=== PATIENT | female | born 1945 | race Caucasian/White ===

== ENCOUNTER 2019-05-02 09:22 | Inpatient (IN) ==
[2019-05-02] MEDS ORDERED: ONDANSETRON 4 MG/2 ML VIAL IV STA (09:43)
[2019-05-02] MEDS ORDERED: LEVOFLOXACIN INJ 750 MG in PREMIX 1 EACH IV STA (09:43)
[2019-05-02] MEDS ORDERED: methylPREDNISolone SOD SUC 125 MG/2 ML VIAL IV STA (09:43)
[2019-05-02 09:56] LABS: Basophils # 0.1 10*3/uL (0.0-0.2); Basophils % 1.1 % (0.0-0.8); Eosinophils # 0.7 10*3/uL (0.0-0.87); Eosinophils % 10.3 % (0.00-10.9); Hematocrit 39.9 VOL% (35.7-47.0); Hemoglobin 12.7 GM/DL (12.0-16.0); Immature Granulocytes % 1.4 %; Immature Granulocytes Absolute 0.09 #; Lymphocytes # 1.9 10*3/uL (1.4-4.0); Lymphocytes % 29.1 % (21.3-54.2); Mean Corpuscular HGB Conc 31.8 GM/DL (32-36); Mean Corpuscular Volume 101.3 FL (87-102); Mean Platelet Volume 12.3 FL (9.6-12.0); Monocytes % 11.4 % (1.7-12.7); Neutrophils % 46.7 % (38.7-73.9); Platelet Count 154 T/CUMM (130-400); Red Blood Count 3.94 MC/CUMM (3.8-5.5); Red Cell Distribution Width 12.2 % (9.3-17.3); White Blood Count 6.6 T/CUMM (4-12)
[2019-05-02] MEDS ORDERED: ALBUTEROL 2.5 MG/3 ML NEB RESP TX SCH (10:00)
[2019-05-02 10:05] LABS: PT Patient Result 10.7 SECS (9.6-12.2)
[2019-05-02 10:11] LABS: Hypochromasia Slight; Platelet Estimate Adequate
[2019-05-02 10:20] LABS: Alanine Aminotransferase 40 U/L (13-56); Albumin 3.5 G/DL (3.4-5.0); Alkaline Phosphatase 55 U/L (45-117); Aspartate Amino Transferase 25 U/L (0-37); Blood Urea Nitrogen 22 MG/DL (7-18); Calcium 9.2 MG/DL (8.5-10.1); Estimated Glom Filtration Rate 59 ML/MIN; Glucose 121 MG/DL (74-106); Osmolality,Calculated 282.4 MOS/KG (273-304); Total Protein 6.5 G/DL (6.4-8.3); Troponin I < 0.015 NG/ML (0.00-0.045)
[2019-05-02 11:06] LABS: Apearance,Urine CLEAR (Clear); Bacteria,Urine Many /HPF (Few); Bilirubin,Urine Negative (Negative); Blood, Urine Negative (Negative); Glucose,Urine (UA) Negative (Negative); Ketones,Urine Negative (Negative); Nitrite,Urine Positive (Negative); Protein,Urine Negative; Urine Color Yellow (Yellow); Urine Specific Gravity 1.006 (1.001-1.035); Urine Urobilinogen < 2.0 EU/DL (0.2-1.0); WBC,Urine 2 /HPF (0-6)
[2019-05-02] MEDS ORDERED: FUROSEMIDE 40 MG/4 ML VIAL IV STA (11:41)
[2019-05-02] MEDS ORDERED: LACTULOSE 20 GM/30 ML UDCUP PO PRN (13:00)
[2019-05-02] MEDS ORDERED: guaiFENesin/DM ER 600-30 MG TABLET PO PRN (13:00)
[2019-05-02] MEDS ORDERED: SODIUM CHLORIDE 0.9% 1,000 ML IV SCH (13:00)
[2019-05-02] MEDS ORDERED: ONDANSETRON 4 MG/2 ML VIAL IV PRN (13:00)
[2019-05-02] MEDS ORDERED: ACETAMINOPHEN 325 MG TABLET PO PRN (13:00)
[2019-05-02 13:35] LABS: Risk Ratio 5.97; Thyroid Stimulating Hormone 4.12 uIU/ml (0.358-3.74)
[2019-05-02] MEDS: LEVOFLOXACIN INJ 750 MG in PREMIX 1 EACH IV SCH (13:38)
[2019-05-02] MEDS ORDERED: ALBUTEROL 2.5 MG/3 ML NEB RESP TX PRN (14:19)
[2019-05-02] MEDS ORDERED: NITROGLYCERIN SL 0.4 MG TABLET SL PRN (15:46)
[2019-05-02] MEDS: methylPREDNISolone SOD SUC 40 MG/1 ML VIAL IV SCH ×2 (16:16→22:07)
[2019-05-02] MEDS: FUROSEMIDE 20 MG/2 ML VIAL IV SCH (16:16)
[2019-05-02] MEDS: ASPIRIN EC 81 MG TABLET PO SCH (16:18)
[2019-05-02] MEDS: GABAPENTIN 300 MG CAPSULE PO SCH ×2 (17:21→20:45)
[2019-05-02] MEDS: ALBUTEROL/IPRATROPIUM 3 ML NEB RESP TX SCH (20:10)
[2019-05-02] MEDS: CALCIUM (CARBONATE)/VITAMIN D 600 MG-400 UNIT TABLET PO SCH (20:45)
[2019-05-02] MEDS: ACETYLCYSTEINE 600 MG CAPSULE PO SCH (20:46)
[2019-05-02] MEDS: APIXABAN 2.5 MG TABLET PO SCH (20:47)
[2019-05-02] MEDS: sulfaSALAzine 500 MG TABLET PO SCH (20:49)
[2019-05-02] MEDS ORDERED: SIMVASTATIN 40 MG TABLET PO SCH (21:00)
[2019-05-02] MEDS: traZODone 50 MG TABLET PO SCH (22:10)
[2019-05-03] MEDS: ALBUTEROL/IPRATROPIUM 3 ML NEB RESP TX SCH ×4 (00:39→20:42)
[2019-05-03 06:29] LABS: Basophils % 0.4 % (0.0-0.8); Hematocrit 39.2 VOL% (35.7-47.0); Hemoglobin 12.6 GM/DL (12.0-16.0); Immature Granulocytes % 1.3 %; Immature Granulocytes Absolute 0.15 #; Lymphocytes # 1.5 10*3/uL (1.4-4.0); Lymphocytes % 13.3 % (21.3-54.2); Mean Corpuscular HGB Conc 32.1 GM/DL (32-36); Mean Corpuscular Volume 100.8 FL (87-102); Mean Platelet Volume 12.4 FL (9.6-12.0); Monocytes % 7.6 % (1.7-12.7); Neutrophils % 77.4 % (38.7-73.9); Platelet Count 153 T/CUMM (130-400); Red Blood Count 3.89 MC/CUMM (3.8-5.5); Red Cell Distribution Width 12.4 % (9.3-17.3); White Blood Count 11.4 T/CUMM (4-12)
[2019-05-03] MEDS: methylPREDNISolone SOD SUC 40 MG/1 ML VIAL IV SCH ×2 (06:41→14:53)
[2019-05-03 06:49] LABS: Calcium 9.6 MG/DL (8.5-10.1); Osmolality,Calculated 293.1 MOS/KG (273-304)
[2019-05-03 07:10] LABS: Folate 15.8 NG/ML (5.4-24.0); Vitamin B12 435 PG/ML (211-911)
[2019-05-03 07:31] LABS: Sedimentation Rate-Westergren 12 MM/HR (0-30)
[2019-05-03 08:44] LABS: Hemoglobin A1 (Alkaline) 97.1 % (96.5-98.5); Hemoglobin A2 (Alkaline) 2.9 % (1.5-3.5)
[2019-05-03] MEDS ORDERED: Umeclidinium-Vilanterol [Anoro Ellipta] 1 PUFF INH SCH (09:00)
[2019-05-03] MEDS: ACETYLCYSTEINE 600 MG CAPSULE PO SCH ×2 (09:02→20:32)
[2019-05-03] MEDS: CALCIUM (CARBONATE)/VITAMIN D 600 MG-400 UNIT TABLET PO SCH ×2 (09:02→20:31)
[2019-05-03] MEDS: ASPIRIN EC 81 MG TABLET PO SCH (09:02)
[2019-05-03] MEDS: APIXABAN 2.5 MG TABLET PO SCH ×2 (09:02→20:31)
[2019-05-03] MEDS: BISOPROLOL/HCTZ 10-6.25 MG TABLET PO SCH (09:02)
[2019-05-03] MEDS: CHOLECALCIFEROL 1,000 UNIT TABLET PO SCH (09:02)
[2019-05-03] MEDS: LEFLUNOMIDE 10 MG TABLET PO SCH (09:02)
[2019-05-03] MEDS: OXYBUTYNIN XL 10 MG TABLET PO SCH (09:02)
[2019-05-03] MEDS: PANTOPRAZOLE 40 MG TABLET PO SCH (09:02)
[2019-05-03] MEDS: sulfaSALAzine 500 MG TABLET PO SCH ×2 (09:02→20:31)
[2019-05-03] MEDS: GABAPENTIN 300 MG CAPSULE PO SCH ×4 (09:02→20:32)
[2019-05-03] MEDS: FUROSEMIDE 20 MG/2 ML VIAL IV SCH ×2 (09:07→17:35)
[2019-05-03] MEDS: LEVOFLOXACIN INJ 750 MG in PREMIX 1 EACH IV SCH (12:58)
[2019-05-03] MEDS: LOSARTAN 25 MG TABLET PO SCH (12:58)
[2019-05-03] MEDS ORDERED: methylPREDNISolone SOD SUC 40 MG/1 ML VIAL IV SCH (17:00)
[2019-05-03] MEDS: traZODone 50 MG TABLET PO SCH (20:31)
[2019-05-03] MEDS ORDERED: ROSUVASTATIN 20 MG TABLET PO SCH (21:00)
[2019-05-04] MEDS: ALBUTEROL/IPRATROPIUM 3 ML NEB RESP TX SCH ×2 (01:35→07:45)
[2019-05-04 05:31] LABS: Basophils % 0.3 % (0.0-0.8); Hematocrit 38.2 VOL% (35.7-47.0); Immature Granulocytes Absolute 0.14 #; Lymphocytes # 2.1 10*3/uL (1.4-4.0); Lymphocytes % 14.7 % (21.3-54.2); Mean Corpuscular HGB Conc 31.4 GM/DL (32-36); Mean Corpuscular Volume 101.3 FL (87-102); Mean Platelet Volume 12.8 FL (9.6-12.0); Monocytes % 11.3 % (1.7-12.7); Neutrophils % 72.7 % (38.7-73.9); Platelet Count 147 T/CUMM (130-400); Red Blood Count 3.77 MC/CUMM (3.8-5.5); Red Cell Distribution Width 12.4 % (9.3-17.3); White Blood Count 14.1 T/CUMM (4-12)
[2019-05-04 05:41] LABS: Calcium 9.5 MG/DL (8.5-10.1)
[2019-05-04] MEDS: FUROSEMIDE 20 MG/2 ML VIAL IV SCH (09:40)
[2019-05-04] MEDS: GABAPENTIN 300 MG CAPSULE PO SCH ×2 (09:41→13:32)
[2019-05-04] MEDS: ACETYLCYSTEINE 600 MG CAPSULE PO SCH (09:41)
[2019-05-04] MEDS: CALCIUM (CARBONATE)/VITAMIN D 600 MG-400 UNIT TABLET PO SCH (09:42)
[2019-05-04] MEDS: LEFLUNOMIDE 10 MG TABLET PO SCH (09:42)
[2019-05-04] MEDS: BISOPROLOL/HCTZ 10-6.25 MG TABLET PO SCH (09:42)
[2019-05-04] MEDS: OXYBUTYNIN XL 10 MG TABLET PO SCH (09:42)
[2019-05-04] MEDS: PANTOPRAZOLE 40 MG TABLET PO SCH (09:42)
[2019-05-04] MEDS: CHOLECALCIFEROL 1,000 UNIT TABLET PO SCH (09:42)
[2019-05-04] MEDS: APIXABAN 2.5 MG TABLET PO SCH (09:42)
[2019-05-04] MEDS: sulfaSALAzine 500 MG TABLET PO SCH (09:42)
[2019-05-04] MEDS: ASPIRIN EC 81 MG TABLET PO SCH (09:42)
[2019-05-04 12:36] VITALS: BP 151/80
[2019-05-04] MEDS: LOSARTAN 25 MG TABLET PO SCH (13:32)
== END 2019-05-04 13:25 | disposition home or self-care (01) | DRG 191 ==
LOC: N.ED 09:22 → N.EDINP 13:00 → N.4E 13:35
PROVIDERS: ADMIT Hospitalist; ATTEND Hospitalist

== ENCOUNTER 2021-03-30 08:39 | Inpatient (IN) ==
[2021-03-30] MEDS ORDERED: ALBUTEROL NEB SOLN 5 MG/ML 20 ML/BOTTLE CONT NEB STA (09:28)
[2021-03-30 09:29] LABS: Basophils # 0.1 10*3/uL (0.0-0.2); Basophils % 0.7 % (0.0-0.8); Eosinophils # 0.1 10*3/uL (0.0-0.87); Eosinophils % 0.8 % (0.00-10.9); Hematocrit 35.6 VOL% (35.7-47.0); Hemoglobin 10.9 GM/DL (12.0-16.0); Immature Granulocytes % 0.4 %; Immature Granulocytes Absolute 0.03 #; Mean Corpuscular HGB Conc 30.6 GM/DL (32-36); Mean Corpuscular Volume 99.2 FL (87-102); Mean Platelet Volume 12.3 FL (9.6-12.0); Monocytes % 25.2 % (1.7-12.7); Neutrophils % 58.9 % (38.7-73.9); Platelet Count 133 T/CUMM (130-400); Red Blood Count 3.59 MC/CUMM (3.8-5.5); Red Cell Distribution Width 13.2 % (9.3-17.3); White Blood Count 7.4 T/CUMM (4-12)
[2021-03-30 09:48] LABS: Band Neutrophils 6 % (0-10); Eosinophils 1 % (0-10); Hypochromasia 1+; Lymphocytes 12 % (20-55); Microcytosis 1+; Platelet Estimate Normal; Segmented Neutrophils 59 % (50-85); Total Cells Counted 100
[2021-03-30 09:49] LABS: ABG Base Excess 5.8 MMOL/L (-2.5-2.5); ABG HCO3 29.6 MMOL/L (20-26); ABG Oxygen Saturation 95.2 % (95-100); ABG PCO2 44.6 MM HG (35-48); ABG PH 7.445 (7.35-7.45); ABG PO2 82.8 MM HG (80-95); ABG TCO2 27.4 MMOL/L (23-27)
[2021-03-30 09:56] LABS: Albumin 3.1 G/DL (3.4-5.0); Bilirubin,Total 0.7 MG/DL (0.20-1.00); Calcium 8.9 MG/DL (8.5-10.1); Osmolality,Calculated 274.8 MOS/KG (273-304); Potassium 3.2 MMOL/L (3.5-5.1); Total Protein 6.1 G/DL (6.4-8.2)
[2021-03-30] MEDS ORDERED: methylPREDNISolone SOD SUC 125 MG/2 ML VIAL IV STA (10:15)
[2021-03-30] MEDS ORDERED: LEVOFLOXACIN INJ 750 MG/150 ML PREMIX IV STA (10:17)
[2021-03-30] MEDS ORDERED: FUROSEMIDE 40 MG/4 ML VIAL IV STA (10:48)
[2021-03-30] MEDS ORDERED: GLUCAGON 1 MG VIAL IM PRN (10:51)
[2021-03-30] MEDS ORDERED: ONDANSETRON 4 MG/2 ML VIAL IV PRN (10:52)
[2021-03-30] MEDS ORDERED: ACETAMINOPHEN 325 MG TABLET PO PRN (10:52)
[2021-03-30] MEDS ORDERED: DOCUSATE SODIUM 100 MG CAPSULE PO PRN (10:52)
[2021-03-30] MEDS ORDERED: ZALEPLON 5 MG CAPSULE PO PRN (10:52)
[2021-03-30] MEDS ORDERED: POTASSIUM CHLORIDE 20 MEQ TABLET PO ONE (10:58)
[2021-03-30] MEDS ORDERED: DENOSUMAB 60 MG/ML SYRINGE SUBCUT SCH (11:00)
[2021-03-30] MEDS ORDERED: DEXTROSE 50% 25 GM/50 ML SYRINGE IV PRN (11:05)
[2021-03-30] MEDS ORDERED: IBUPROFEN 600 MG TABLET PO PRN (11:41)
[2021-03-30] MEDS: LOSARTAN 25 MG TABLET PO SCH (11:56)
[2021-03-30] MEDS: ALBUTEROL/IPRATROPIUM 3 ML NEB RESP TX SCH ×2 (12:05→20:08)
[2021-03-30] MEDS: INSULIN LISPRO 100 UNIT/ML SUBCUT SCH ×3 (13:26→21:55)
[2021-03-30] MEDS: LIDOCAINE 5% PATCH TRANSDERM SCH (14:30)
[2021-03-30] MEDS: IBUPROFEN 600 MG TABLET PO SCH ×2 (14:30→23:09)
[2021-03-30] MEDS ORDERED: CARBOXYMETHYLCELLULOSE 1% OPH SOLN BOTH EYES PRN (19:07)
[2021-03-30] MEDS ORDERED: SULFASALAZINE 500 MG PO SCH (21:00)
[2021-03-30] MEDS ORDERED: [UNRECOGNIZED DRUG - OTHER] PO SCH (21:00)
[2021-03-30] MEDS: ROSUVASTATIN 20 MG TABLET PO SCH (21:50)
[2021-03-30] MEDS: ACETAMINOPHEN 500 MG TABLET PO SCH (21:51)
[2021-03-30] MEDS: APIXABAN 2.5 MG TABLET PO SCH (21:51)
[2021-03-30] MEDS: GABAPENTIN 300 MG CAPSULE PO SCH ×2 (21:59→22:46)
[2021-03-30] MEDS: methylPREDNISolone SOD SUC 40 MG/1 ML VIAL IV SCH ×2 (22:46→23:09)
[2021-03-30] MEDS ORDERED: IBUPROFEN 600 MG TABLET PO SCH (23:00)
[2021-03-31] MEDS: ALBUTEROL/IPRATROPIUM 3 ML NEB RESP TX SCH ×4 (01:07→20:25)
[2021-03-31] MEDS: methylPREDNISolone SOD SUC 40 MG/1 ML VIAL IV SCH ×3 (03:56→14:41)
[2021-03-31 05:13] LABS: Basophils % 0.3 % (0.0-0.8); Hematocrit 35.7 VOL% (35.7-47.0); Hemoglobin 11.1 GM/DL (12.0-16.0); Immature Granulocytes % 1.7 %; Immature Granulocytes Absolute 0.12 #; Lymphocytes # 0.9 10*3/uL (1.4-4.0); Lymphocytes % 13.3 % (21.3-54.2); Mean Corpuscular HGB Conc 31.1 GM/DL (32-36); Mean Corpuscular Volume 98.9 FL (87-102); Mean Platelet Volume 11.9 FL (9.6-12.0); Monocytes % 12.6 % (1.7-12.7); Neutrophils % 72.1 % (38.7-73.9); Platelet Count 153 T/CUMM (130-400); Red Blood Count 3.61 MC/CUMM (3.8-5.5); Red Cell Distribution Width 13.1 % (9.3-17.3); White Blood Count 7.1 T/CUMM (4-12)
[2021-03-31 05:41] LABS: Osmolality,Calculated 289.3 MOS/KG (273-304)
[2021-03-31 05:47] LABS: Band Neutrophils 2 % (0-10); Hypochromasia 1+; Lymphocytes 12 % (20-55); Platelet Estimate Adequate; Segmented Neutrophils 68 % (50-85); Total Cells Counted 100
[2021-03-31 05:48] LABS: Microcytosis 1+
[2021-03-31] MEDS ORDERED: PSYLLIUM HUSK 0.52 GM PO SCH (09:00)
[2021-03-31] MEDS: LIDOCAINE 5% PATCH TRANSDERM SCH (10:28)
[2021-03-31] MEDS: ACETAMINOPHEN 500 MG TABLET PO SCH ×2 (10:29→21:55)
[2021-03-31] MEDS: APIXABAN 2.5 MG TABLET PO SCH ×2 (10:29→21:56)
[2021-03-31] MEDS: LEVOFLOXACIN INJ 750 MG/150 ML PREMIX IV SCH (10:29)
[2021-03-31] MEDS: TOLTERODINE LA 4 MG CAPSULE PO SCH (10:30)
[2021-03-31] MEDS: DULoxetine 30 MG CAPSULE PO SCH (10:30)
[2021-03-31] MEDS: INSULIN LISPRO 100 UNIT/ML SUBCUT SCH ×4 (10:31→21:56)
[2021-03-31] MEDS: sulfaSALAzine 500 MG TABLET PO SCH ×2 (10:31→21:55)
[2021-03-31] MEDS: LEFLUNOMIDE 10 MG TABLET PO SCH (10:32)
[2021-03-31] MEDS: POTASSIUM CHLORIDE 20 MEQ TABLET PO SCH (10:33)
[2021-03-31] MEDS: PANTOPRAZOLE 40 MG TABLET PO SCH (10:33)
[2021-03-31] MEDS: CHOLECALCIFEROL 1,000 UNIT TABLET PO SCH (10:33)
[2021-03-31] MEDS: ASPIRIN EC 81 MG TABLET PO SCH (10:34)
[2021-03-31] MEDS: FEXOFENADINE 180 MG TABLET PO SCH (10:35)
[2021-03-31] MEDS: GABAPENTIN 300 MG CAPSULE PO SCH ×3 (10:35→21:55)
[2021-03-31] MEDS: FLUTICASONE 50 MCG NASAL SPRAY 16 GM BOTTLE BOTH NARES SCH (10:35)
[2021-03-31] MEDS: BISOPROLOL/HCTZ 10-6.25 MG TABLET PO SCH (10:38)
[2021-03-31] MEDS: CALCIUM (CARBONATE)/VITAMIN D 600 MG-400 UNIT TABLET PO SCH ×2 (10:39→21:55)
[2021-03-31] MEDS: PSYLLIUM POWDER 3.7 GM/PACK PO SCH (10:39)
[2021-03-31] MEDS: LOSARTAN 25 MG TABLET PO SCH (14:41)
[2021-03-31] MEDS ORDERED: ALBUTEROL/IPRATROPIUM 3 ML NEB RESP TX ONE (15:04)
[2021-03-31 15:17] LABS: ABG Base Excess 5.2 MMOL/L (-2.5-2.5); ABG HCO3 29.1 MMOL/L (20-26); ABG Oxygen Saturation 95.5 % (95-100); ABG PCO2 40.6 MM HG (35-48); ABG PH 7.467 (7.35-7.45); ABG PO2 88.5 MM HG (80-95); ABG TCO2 25.9 MMOL/L (23-27); Allen Test Positive; Pt O2 Delivery Device Other
[2021-03-31] MEDS: methylPREDNISolone SOD SUC 125 MG/2 ML VIAL IV SCH ×2 (16:08→21:57)
[2021-03-31] MEDS ORDERED: POTASSIUM CHLORIDE 20 MEQ PACK PO ONE ×2 (18:26→21:00)
[2021-03-31] MEDS: ROSUVASTATIN 20 MG TABLET PO SCH (21:55)
[2021-04-01] MEDS: ALBUTEROL/IPRATROPIUM 3 ML NEB RESP TX SCH ×4 (00:18→19:40)
[2021-04-01] MEDS: methylPREDNISolone SOD SUC 125 MG/2 ML VIAL IV SCH ×2 (02:31→09:09)
[2021-04-01 06:35] LABS: Calcium 9.6 MG/DL (8.5-10.1); Osmolality,Calculated 292.1 MOS/KG (273-304); Potassium 3.5 MMOL/L (3.5-5.1)
[2021-04-01] MEDS: INSULIN LISPRO 100 UNIT/ML SUBCUT SCH ×4 (09:09→22:26)
[2021-04-01] MEDS: FEXOFENADINE 180 MG TABLET PO SCH (09:10)
[2021-04-01] MEDS: TOLTERODINE LA 4 MG CAPSULE PO SCH (09:10)
[2021-04-01] MEDS: DULoxetine 30 MG CAPSULE PO SCH (09:10)
[2021-04-01] MEDS: CALCIUM (CARBONATE)/VITAMIN D 600 MG-400 UNIT TABLET PO SCH ×2 (09:10→22:25)
[2021-04-01] MEDS: ASPIRIN EC 81 MG TABLET PO SCH (09:10)
[2021-04-01] MEDS: CHOLECALCIFEROL 1,000 UNIT TABLET PO SCH (09:11)
[2021-04-01] MEDS: sulfaSALAzine 500 MG TABLET PO SCH ×2 (09:11→22:26)
[2021-04-01] MEDS: LEFLUNOMIDE 10 MG TABLET PO SCH (09:11)
[2021-04-01] MEDS: GABAPENTIN 300 MG CAPSULE PO SCH ×3 (09:11→22:26)
[2021-04-01] MEDS: POTASSIUM CHLORIDE 20 MEQ TABLET PO SCH (09:12)
[2021-04-01] MEDS: APIXABAN 2.5 MG TABLET PO SCH ×2 (09:12→22:26)
[2021-04-01] MEDS: FLUTICASONE 50 MCG NASAL SPRAY 16 GM BOTTLE BOTH NARES SCH (09:12)
[2021-04-01] MEDS: SODIUM CHLORIDE 0.65% NASAL SPRAY 45 ML BOTTLE BOTH NARES PRN (09:12)
[2021-04-01] MEDS: PANTOPRAZOLE 40 MG TABLET PO SCH (09:12)
[2021-04-01] MEDS: PSYLLIUM POWDER 3.7 GM/PACK PO SCH (09:20)
[2021-04-01] MEDS: LEVOFLOXACIN INJ 750 MG/150 ML PREMIX IV SCH (09:21)
[2021-04-01] MEDS: LIDOCAINE 5% PATCH TRANSDERM SCH (09:21)
[2021-04-01] MEDS ORDERED: PHENOL 1.4% THROAT SPRAY 177 ML BOTTLE PO PRN (10:02)
[2021-04-01] MEDS: BISOPROLOL/HCTZ 10-6.25 MG TABLET PO SCH (11:34)
[2021-04-01] MEDS: ACETAMINOPHEN 500 MG TABLET PO SCH ×2 (11:45→22:26)
[2021-04-01] MEDS: LOSARTAN 25 MG TABLET PO SCH (11:45)
[2021-04-01] MEDS: methylPREDNISolone SOD SUC 40 MG/1 ML VIAL IV SCH ×2 (15:43→22:27)
[2021-04-01] MEDS: ROSUVASTATIN 20 MG TABLET PO SCH (22:25)
[2021-04-02] MEDS: ALBUTEROL/IPRATROPIUM 3 ML NEB RESP TX SCH ×4 (00:21→20:51)
[2021-04-02] MEDS: methylPREDNISolone SOD SUC 40 MG/1 ML VIAL IV SCH ×4 (04:00→21:51)
[2021-04-02] MEDS: SODIUM CHLORIDE 0.65% NASAL SPRAY 45 ML BOTTLE BOTH NARES PRN ×2 (04:00→11:13)
[2021-04-02 06:54] LABS: Calcium 9.6 MG/DL (8.5-10.1); Osmolality,Calculated 289.3 MOS/KG (273-304); Potassium 3.8 MMOL/L (3.5-5.1)
[2021-04-02] MEDS ORDERED: MEPERIDINE 50 MG/1 ML VIAL IM ONE (07:00)
[2021-04-02] MEDS ORDERED: GLYCOPYRROLATE 0.4 MG/2 ML VIAL IM ONE (07:00)
[2021-04-02] MEDS ORDERED: PROMETHAZINE 25 MG/1 ML VIAL IM ONE (07:00)
[2021-04-02] MEDS ORDERED: LIDOCAINE 2% VISCOUS 100 ML BOTTLE SWISH/SPIT ONE (07:30)
[2021-04-02] MEDS ORDERED: LIDOCAINE 1% 20 ML VIAL MISC INJ ONE (07:30)
[2021-04-02] MEDS ORDERED: LIDOCAINE 2% 20 ML VIAL RESP TX ONE (07:30)
[2021-04-02] MEDS ORDERED: MIDAZOLAM 2 MG/2 ML VIAL IV ONE (07:30)
[2021-04-02] MEDS: INSULIN LISPRO 100 UNIT/ML SUBCUT SCH ×4 (07:54→21:51)
[2021-04-02] MEDS ORDERED: BISOPROLOL/HCTZ 10-6.25 MG TABLET PO ONE (11:03)
[2021-04-02] MEDS: CHOLECALCIFEROL 1,000 UNIT TABLET PO SCH (11:10)
[2021-04-02] MEDS: APIXABAN 2.5 MG TABLET PO SCH ×2 (11:10→21:50)
[2021-04-02] MEDS: LEFLUNOMIDE 10 MG TABLET PO SCH (11:10)
[2021-04-02] MEDS: PANTOPRAZOLE 40 MG TABLET PO SCH (11:11)
[2021-04-02] MEDS: POTASSIUM CHLORIDE 20 MEQ TABLET PO SCH (11:11)
[2021-04-02] MEDS: ASPIRIN EC 81 MG TABLET PO SCH (11:11)
[2021-04-02] MEDS: TOLTERODINE LA 4 MG CAPSULE PO SCH (11:11)
[2021-04-02] MEDS: ACETAMINOPHEN 500 MG TABLET PO SCH ×2 (11:11→21:55)
[2021-04-02] MEDS: CALCIUM (CARBONATE)/VITAMIN D 600 MG-400 UNIT TABLET PO SCH ×2 (11:11→21:50)
[2021-04-02] MEDS: LEVOFLOXACIN 750 MG TABLET PO SCH (11:11)
[2021-04-02] MEDS: FEXOFENADINE 180 MG TABLET PO SCH (11:12)
[2021-04-02] MEDS: DULoxetine 30 MG CAPSULE PO SCH (11:12)
[2021-04-02] MEDS: sulfaSALAzine 500 MG TABLET PO SCH ×2 (11:12→21:50)
[2021-04-02] MEDS: GABAPENTIN 300 MG CAPSULE PO SCH ×3 (11:12→21:50)
[2021-04-02] MEDS: FLUTICASONE 50 MCG NASAL SPRAY 16 GM BOTTLE BOTH NARES SCH (11:13)
[2021-04-02] MEDS: LOSARTAN 25 MG TABLET PO SCH (11:15)
[2021-04-02] MEDS: LIDOCAINE 5% PATCH TRANSDERM SCH (11:15)
[2021-04-02] MEDS: PSYLLIUM POWDER 3.7 GM/PACK PO SCH (11:16)
[2021-04-02] MEDS: BISOPROLOL/HCTZ 10-6.25 MG TABLET PO SCH (12:43)
[2021-04-02] MEDS: ACETYLCYSTEINE 20% 800 MG/4 ML VIAL RESP TX SCH ×2 (13:10→20:51)
[2021-04-02] MEDS: BISOPROLOL 5 MG TABLET PO SCH (14:19)
[2021-04-02] MEDS: hydroCHLOROthiazide 25 MG TABLET PO SCH (14:19)
[2021-04-02] MEDS: ROSUVASTATIN 20 MG TABLET PO SCH (21:50)
[2021-04-03] MEDS: ALBUTEROL/IPRATROPIUM 3 ML NEB RESP TX SCH ×4 (01:07→21:18)
[2021-04-03] MEDS: methylPREDNISolone SOD SUC 40 MG/1 ML VIAL IV SCH ×3 (03:25→16:03)
[2021-04-03] MEDS: INSULIN LISPRO 100 UNIT/ML SUBCUT SCH ×4 (08:02→21:32)
[2021-04-03] MEDS: ACETYLCYSTEINE 20% 800 MG/4 ML VIAL RESP TX SCH ×2 (08:04→21:18)
[2021-04-03] MEDS ORDERED: BISOPROLOL/HCTZ 10-6.25 MG TABLET PO SCH (09:00)
[2021-04-03] MEDS: LEFLUNOMIDE 10 MG TABLET PO SCH (09:25)
[2021-04-03] MEDS: APIXABAN 2.5 MG TABLET PO SCH ×2 (09:26→21:31)
[2021-04-03] MEDS: CHOLECALCIFEROL 1,000 UNIT TABLET PO SCH (09:26)
[2021-04-03] MEDS: DULoxetine 30 MG CAPSULE PO SCH (09:26)
[2021-04-03] MEDS: FEXOFENADINE 180 MG TABLET PO SCH (09:27)
[2021-04-03] MEDS: ASPIRIN EC 81 MG TABLET PO SCH (09:27)
[2021-04-03] MEDS: sulfaSALAzine 500 MG TABLET PO SCH ×2 (09:27→21:31)
[2021-04-03] MEDS: SODIUM CHLORIDE 0.65% NASAL SPRAY 45 ML BOTTLE BOTH NARES PRN (09:28)
[2021-04-03] MEDS: CALCIUM (CARBONATE)/VITAMIN D 600 MG-400 UNIT TABLET PO SCH ×2 (09:28→21:31)
[2021-04-03] MEDS: TOLTERODINE LA 4 MG CAPSULE PO SCH (09:28)
[2021-04-03] MEDS: FLUTICASONE 50 MCG NASAL SPRAY 16 GM BOTTLE BOTH NARES SCH (09:28)
[2021-04-03] MEDS: hydroCHLOROthiazide 25 MG TABLET PO SCH (09:29)
[2021-04-03] MEDS: PSYLLIUM POWDER 3.7 GM/PACK PO SCH (09:30)
[2021-04-03] MEDS: LEVOFLOXACIN 750 MG TABLET PO SCH (09:30)
[2021-04-03] MEDS: POTASSIUM CHLORIDE 20 MEQ TABLET PO SCH (09:30)
[2021-04-03] MEDS: LIDOCAINE 5% PATCH TRANSDERM SCH (09:32)
[2021-04-03] MEDS: GABAPENTIN 300 MG CAPSULE PO SCH ×3 (09:32→21:31)
[2021-04-03] MEDS: PANTOPRAZOLE 40 MG TABLET PO SCH (09:33)
[2021-04-03] MEDS: BISOPROLOL 5 MG TABLET PO SCH (09:35)
[2021-04-03] MEDS: ACETAMINOPHEN 500 MG TABLET PO SCH ×2 (09:39→21:32)
[2021-04-03] MEDS: LOSARTAN 25 MG TABLET PO SCH (12:47)
[2021-04-03] MEDS: ROSUVASTATIN 20 MG TABLET PO SCH (21:31)
[2021-04-04] MEDS: ALBUTEROL/IPRATROPIUM 3 ML NEB RESP TX SCH ×4 (01:35→19:55)
[2021-04-04] MEDS: ACETYLCYSTEINE 20% 800 MG/4 ML VIAL RESP TX SCH ×2 (07:24→19:55)
[2021-04-04] MEDS: methylPREDNISolone SOD SUC 40 MG/1 ML VIAL IV SCH ×3 (13:49→21:19)
[2021-04-04] MEDS: LEFLUNOMIDE 10 MG TABLET PO SCH (13:50)
[2021-04-04] MEDS: INSULIN LISPRO 100 UNIT/ML SUBCUT SCH ×3 (13:50→21:04)
[2021-04-04] MEDS: FEXOFENADINE 180 MG TABLET PO SCH (13:50)
[2021-04-04] MEDS: sulfaSALAzine 500 MG TABLET PO SCH ×2 (13:50→21:08)
[2021-04-04] MEDS: ASPIRIN EC 81 MG TABLET PO SCH (13:50)
[2021-04-04] MEDS: TOLTERODINE LA 4 MG CAPSULE PO SCH (13:51)
[2021-04-04] MEDS: LIDOCAINE 5% PATCH TRANSDERM SCH (13:51)
[2021-04-04] MEDS: FLUTICASONE 50 MCG NASAL SPRAY 16 GM BOTTLE BOTH NARES SCH (13:51)
[2021-04-04] MEDS: PSYLLIUM POWDER 3.7 GM/PACK PO SCH (13:51)
[2021-04-04] MEDS: POTASSIUM CHLORIDE 20 MEQ TABLET PO SCH (13:51)
[2021-04-04] MEDS: DULoxetine 30 MG CAPSULE PO SCH (13:51)
[2021-04-04] MEDS: APIXABAN 2.5 MG TABLET PO SCH ×2 (13:51→21:09)
[2021-04-04] MEDS: LEVOFLOXACIN 750 MG TABLET PO SCH (13:51)
[2021-04-04] MEDS: CALCIUM (CARBONATE)/VITAMIN D 600 MG-400 UNIT TABLET PO SCH ×2 (13:51→21:08)
[2021-04-04] MEDS: ACETAMINOPHEN 500 MG TABLET PO SCH ×2 (13:52→21:08)
[2021-04-04] MEDS: LOSARTAN 25 MG TABLET PO SCH (13:52)
[2021-04-04] MEDS: CHOLECALCIFEROL 1,000 UNIT TABLET PO SCH (13:52)
[2021-04-04] MEDS: BISOPROLOL 5 MG TABLET PO SCH (13:52)
[2021-04-04] MEDS: PANTOPRAZOLE 40 MG TABLET PO SCH (13:53)
[2021-04-04] MEDS: GABAPENTIN 300 MG CAPSULE PO SCH ×3 (13:53→21:08)
[2021-04-04] MEDS: hydroCHLOROthiazide 25 MG TABLET PO SCH (15:45)
[2021-04-04] MEDS: ROSUVASTATIN 20 MG TABLET PO SCH (21:08)
[2021-04-05] MEDS: ALBUTEROL/IPRATROPIUM 3 ML NEB RESP TX SCH ×4 (01:13→20:20)
[2021-04-05] MEDS: ACETYLCYSTEINE 20% 800 MG/4 ML VIAL RESP TX SCH (07:24)
[2021-04-05] MEDS: FLUTICASONE 50 MCG NASAL SPRAY 16 GM BOTTLE BOTH NARES SCH (09:15)
[2021-04-05] MEDS: INSULIN LISPRO 100 UNIT/ML SUBCUT SCH ×4 (09:15→23:13)
[2021-04-05] MEDS: SODIUM CHLORIDE 0.65% NASAL SPRAY 45 ML BOTTLE BOTH NARES PRN (09:16)
[2021-04-05] MEDS: PSYLLIUM POWDER 3.7 GM/PACK PO SCH (09:17)
[2021-04-05] MEDS: POTASSIUM CHLORIDE 20 MEQ TABLET PO SCH (09:18)
[2021-04-05] MEDS: ASPIRIN EC 81 MG TABLET PO SCH (09:18)
[2021-04-05] MEDS: DULoxetine 30 MG CAPSULE PO SCH (09:18)
[2021-04-05] MEDS: CHOLECALCIFEROL 1,000 UNIT TABLET PO SCH (09:18)
[2021-04-05] MEDS: BISOPROLOL 5 MG TABLET PO SCH (09:18)
[2021-04-05] MEDS: GABAPENTIN 300 MG CAPSULE PO SCH ×3 (09:18→23:14)
[2021-04-05] MEDS: APIXABAN 2.5 MG TABLET PO SCH ×2 (09:18→23:14)
[2021-04-05] MEDS: PANTOPRAZOLE 40 MG TABLET PO SCH (09:19)
[2021-04-05] MEDS: TOLTERODINE LA 4 MG CAPSULE PO SCH (09:19)
[2021-04-05] MEDS: sulfaSALAzine 500 MG TABLET PO SCH ×2 (09:19→23:14)
[2021-04-05] MEDS: CALCIUM (CARBONATE)/VITAMIN D 600 MG-400 UNIT TABLET PO SCH ×2 (09:19→23:14)
[2021-04-05] MEDS: FLUCONAZOLE 100 MG TABLET PO SCH (09:19)
[2021-04-05] MEDS: FEXOFENADINE 180 MG TABLET PO SCH (09:19)
[2021-04-05] MEDS: LEFLUNOMIDE 10 MG TABLET PO SCH (09:19)
[2021-04-05] MEDS: ACETAMINOPHEN 500 MG TABLET PO SCH (09:20)
[2021-04-05] MEDS: hydroCHLOROthiazide 25 MG TABLET PO SCH (09:20)
[2021-04-05] MEDS: methylPREDNISolone SOD SUC 40 MG/1 ML VIAL IV SCH ×2 (09:20→23:10)
[2021-04-05] MEDS: LIDOCAINE 5% PATCH TRANSDERM SCH (09:21)
[2021-04-05] MEDS: LOSARTAN 50 MG TABLET PO SCH (13:18)
[2021-04-05] MEDS: ROSUVASTATIN 20 MG TABLET PO SCH (23:14)
[2021-04-06] MEDS: ALBUTEROL/IPRATROPIUM 3 ML NEB RESP TX SCH ×2 (00:55→07:19)
[2021-04-06] MEDS: ACETAMINOPHEN 500 MG TABLET PO SCH ×2 (02:28→10:00)
[2021-04-06 05:17] LABS: Basophils # 0.2 10*3/uL (0.0-0.2); Basophils % 1.4 % (0.0-0.8); Eosinophils % 0.1 % (0.00-10.9); Hematocrit 36.6 VOL% (35.7-47.0); Hemoglobin 11.4 GM/DL (12.0-16.0); Immature Granulocytes Absolute 2.66 #; Lymphocytes # 1.5 10*3/uL (1.4-4.0); Lymphocytes % 11.6 % (21.3-54.2); Mean Corpuscular HGB Conc 31.1 GM/DL (32-36); Mean Corpuscular Volume 98.4 FL (87-102); Mean Platelet Volume 10.8 FL (9.6-12.0); Monocytes % 5.8 % (1.7-12.7); Neutrophils % 61.1 % (38.7-73.9); Platelet Count 209 T/CUMM (130-400); Red Blood Count 3.72 MC/CUMM (3.8-5.5); Red Cell Distribution Width 13.8 % (9.3-17.3); White Blood Count 13.3 T/CUMM (4-12)
[2021-04-06 05:34] LABS: Calcium 9.3 MG/DL (8.5-10.1); Osmolality,Calculated 288.3 MOS/KG (273-304); Potassium 4.5 MMOL/L (3.5-5.1)
[2021-04-06 05:57] LABS: Band Neutrophils 1 % (0-10); Hypochromasia 1+; Lymphocytes 11 % (20-55); Microcytosis 1+; Platelet Estimate Adequate; Segmented Neutrophils 81 % (50-85); Total Cells Counted 100
[2021-04-06] MEDS: INSULIN LISPRO 100 UNIT/ML SUBCUT SCH ×2 (07:58→12:28)
[2021-04-06] MEDS: BISOPROLOL 5 MG TABLET PO SCH (09:58)
[2021-04-06] MEDS: POTASSIUM CHLORIDE 20 MEQ TABLET PO SCH (09:58)
[2021-04-06] MEDS: DULoxetine 30 MG CAPSULE PO SCH (09:58)
[2021-04-06] MEDS: FLUCONAZOLE 100 MG TABLET PO SCH (09:59)
[2021-04-06] MEDS: ASPIRIN EC 81 MG TABLET PO SCH (09:59)
[2021-04-06] MEDS: PANTOPRAZOLE 40 MG TABLET PO SCH (09:59)
[2021-04-06] MEDS: TOLTERODINE LA 4 MG CAPSULE PO SCH (09:59)
[2021-04-06] MEDS: sulfaSALAzine 500 MG TABLET PO SCH (09:59)
[2021-04-06] MEDS: hydroCHLOROthiazide 25 MG TABLET PO SCH (09:59)
[2021-04-06] MEDS: FEXOFENADINE 180 MG TABLET PO SCH (10:00)
[2021-04-06] MEDS: CHOLECALCIFEROL 1,000 UNIT TABLET PO SCH (10:00)
[2021-04-06] MEDS: GABAPENTIN 300 MG CAPSULE PO SCH (10:00)
[2021-04-06] MEDS: CALCIUM (CARBONATE)/VITAMIN D 600 MG-400 UNIT TABLET PO SCH (10:00)
[2021-04-06] MEDS: APIXABAN 2.5 MG TABLET PO SCH (10:00)
[2021-04-06] MEDS: PSYLLIUM POWDER 3.7 GM/PACK PO SCH (10:01)
[2021-04-06] MEDS: FLUTICASONE 50 MCG NASAL SPRAY 16 GM BOTTLE BOTH NARES SCH (10:01)
[2021-04-06] MEDS: SODIUM CHLORIDE 0.65% NASAL SPRAY 45 ML BOTTLE BOTH NARES PRN (10:01)
[2021-04-06] MEDS: LEFLUNOMIDE 10 MG TABLET PO SCH (10:03)
[2021-04-06] MEDS ORDERED: predniSONE 20 MG TABLET PO SCH (11:00)
[2021-04-06 12:31] VITALS: BP 136/90
[2021-04-06] MEDS: LOSARTAN 50 MG TABLET PO SCH (12:49)
== END 2021-04-06 14:25 | disposition home health service (06) | DRG 190 ==
LOC: SUATTDRO → N.ED 08:39 → N.EDINP 10:51 → SUATTDRO 10:51 → N.5E 18:19
PROVIDERS: ADMIT Internal Medicine; ATTEND Internal Medicine

== ENCOUNTER 2022-01-05 14:06 | Observation (INO) ==
[2022-01-05 15:39] LABS: Basophils # 0.1 10*3/uL (0.0-0.2); Basophils % 0.9 % (0.0-0.8); Eosinophils # 0.6 10*3/uL (0.0-0.87); Eosinophils % 8.9 % (0.00-10.9); Hematocrit 37.5 VOL% (35.7-47.0); Hemoglobin 11.7 GM/DL (12.0-16.0); Immature Granulocytes % 0.3 %; Immature Granulocytes Absolute 0.02 #; Lymphocytes # 2.3 10*3/uL (1.4-4.0); Lymphocytes % 35.1 % (21.3-54.2); Mean Corpuscular HGB Conc 31.2 GM/DL (32-36); Mean Corpuscular Volume 99.7 FL (87-102); Mean Platelet Volume 12.9 FL (9.6-12.0); Monocytes # 0.7 10*3/uL (0.11-0.8); Monocytes % 11.1 % (1.7-12.7); Neutrophils % 43.7 % (38.7-73.9); Platelet Count 135 T/CUMM (130-400); Red Blood Count 3.76 MC/CUMM (3.8-5.5); Red Cell Distribution Width 12.8 % (9.3-17.3); White Blood Count 6.6 T/CUMM (4-12)
[2022-01-05 15:56] LABS: Albumin 4.2 G/DL (3.4-5.0); Bilirubin,Total 0.5 MG/DL (0.20-1.00); Calcium 9.4 MG/DL (8.5-10.1); Osmolality,Calculated 281.4 MOS/KG (273-304); Potassium 3.6 MMOL/L (3.5-5.1)
[2022-01-05] MEDS ORDERED: SODIUM CHLORIDE 0.9% 1,000 ML IV STA (16:11)
[2022-01-05] MEDS ORDERED: ONDANSETRON 4 MG/2 ML VIAL IV PRN (17:58)
[2022-01-05] MEDS ORDERED: CALCIUM CARBONATE CHEW 500 MG TABLET PO PRN (17:58)
[2022-01-05] MEDS ORDERED: LACTULOSE 20 GM/30 ML UDCUP PO PRN (17:58)
[2022-01-05] MEDS ORDERED: GLUCAGON 1 MG VIAL IM PRN (17:58)
[2022-01-05] MEDS ORDERED: ALBUTEROL 2.5 MG/3 ML NEB RESP TX PRN (17:58)
[2022-01-05] MEDS ORDERED: SIMETHICONE CHEW 125 MG TABLET PO PRN (17:58)
[2022-01-05] MEDS ORDERED: ALUMINUM/MAGNES/SIMETH MAX STR 30 ML UDCUP PO PRN (17:58)
[2022-01-05] MEDS ORDERED: DEXTROSE 10% 250 ML BAG IV PRN (17:58)
[2022-01-05] MEDS ORDERED: ACETAMINOPHEN 325 MG TABLET PO PRN (17:58)
[2022-01-05] MEDS ORDERED: SODIUM CHLORIDE 0.9% 1,000 ML IV SCH (18:00)
[2022-01-05] MEDS ORDERED: hydrALAZINE 20 MG/1 ML VIAL IV PRN (19:12)
[2022-01-05 19:37] LABS: % Iron Saturation 20.6 % (18-50)
[2022-01-05] MEDS: ALBUTEROL/IPRATROPIUM 3 ML NEB RESP TX SCH (20:40)
[2022-01-05] MEDS ORDERED: ROSUVASTATIN 20 MG TABLET PO SCH (21:00)
[2022-01-05 21:30] LABS: Folate 12.41 NG/ML (5.38-24.0)
[2022-01-05] MEDS: APIXABAN 2.5 MG TABLET PO SCH (22:08)
[2022-01-05] MEDS: CALCIUM (CARBONATE)/VITAMIN D 600 MG-400 UNIT TABLET PO SCH (22:09)
[2022-01-05] MEDS: GABAPENTIN 300 MG CAPSULE PO SCH (22:10)
[2022-01-05] MEDS: SULFASALAZINE 500 MG PO SCH (22:24)
[2022-01-05] MEDS: [UNRECOGNIZED DRUG - OTHER] PO SCH (22:24)
[2022-01-06 01:51] LABS: Bacteria,Urine Occasional /HPF (Few); Squamous Epithelial Cell,Urine Occasional /HPF (0-10)
[2022-01-06 01:52] LABS: Bilirubin,Urine Negative (Negative); Blood, Urine Negative (Negative); Glucose,Urine (UA) Negative (Negative); Ketones,Urine Negative (Negative); Nitrite,Urine Positive (Negative); Protein,Urine Negative (Negative); Urine Appearance Clear (Clear); Urine Color Yellow (Yellow); Urine Urobilinogen 0.2 eU/dL (<2.0); Urine pH 6.5 (4.5-8.0)
[2022-01-06 06:46] LABS: Calcium 9.1 MG/DL (8.5-10.1); Osmolality,Calculated 292.6 MOS/KG (273-304); Potassium 3.5 MMOL/L (3.5-5.1); Risk Ratio 3.97; Thyroid Stimulating Hormone 9.65 uIU/ml (0.358-3.74); VLDL Cholesterol 31.2 MG/DL
[2022-01-06 07:42] LABS: Free T4 (Free Thyroxine) 0.75 NG/DL (0.76-1.46)
[2022-01-06] MEDS: ALBUTEROL/IPRATROPIUM 3 ML NEB RESP TX SCH (07:58)
[2022-01-06 08:39] VITALS: BP 131/92
[2022-01-06] MEDS ORDERED: POTASSIUM CHLORIDE 20 MEQ TABLET PO SCH (09:00)
[2022-01-06] MEDS ORDERED: ASPIRIN EC 81 MG TABLET PO SCH (09:00)
[2022-01-06] MEDS ORDERED: LEFLUNOMIDE 10 MG TABLET PO SCH (09:00)
[2022-01-06] MEDS ORDERED: PANTOPRAZOLE 40 MG TABLET PO SCH (09:00)
[2022-01-06] MEDS ORDERED: CETIRIZINE 10 MG TABLET PO SCH (09:00)
[2022-01-06] MEDS ORDERED: DULoxetine 30 MG CAPSULE PO SCH (09:00)
[2022-01-06] MEDS: CALCIUM (CARBONATE)/VITAMIN D 600 MG-400 UNIT TABLET PO SCH (09:01)
[2022-01-06] MEDS: GABAPENTIN 300 MG CAPSULE PO SCH (09:01)
[2022-01-06] MEDS: APIXABAN 2.5 MG TABLET PO SCH (09:02)
[2022-01-06 09:45] LABS: Basophils % 0.9 % (0.0-0.8); Eosinophils # 0.5 10*3/uL (0.0-0.87); Eosinophils % 10.7 % (0.00-10.9); Hematocrit 34.2 VOL% (35.7-47.0); Hemoglobin 10.3 GM/DL (12.0-16.0); Immature Granulocytes % 0.2 %; Immature Granulocytes Absolute 0.01 #; Lymphocytes # 1.5 10*3/uL (1.4-4.0); Mean Corpuscular HGB Conc 30.1 GM/DL (32-36); Mean Corpuscular Volume 104.3 FL (87-102); Mean Platelet Volume 12.8 FL (9.6-12.0); Monocytes # 0.6 10*3/uL (0.11-0.8); Neutrophils % 43.2 % (38.7-73.9); Platelet Count 114 T/CUMM (130-400); Red Blood Count 3.28 MC/CUMM (3.8-5.5); Red Cell Distribution Width 13.1 % (9.3-17.3); White Blood Count 4.6 T/CUMM (4-12)
[2022-01-06] MEDS ORDERED: OXYBUTYNIN XL 10 MG TABLET PO SCH (12:00)
[2022-01-06] MEDS: SULFASALAZINE 500 MG PO SCH (12:11)
[2022-01-06] MEDS: [UNRECOGNIZED DRUG - OTHER] PO SCH (12:11)
== END 2022-01-06 13:04 | disposition home health service (06) ==
LOC: N.EDINP 14:06 → N.ED 14:06 → N.2W 19:17
PROVIDERS: ADMIT Emergency Medicine; ATTEND Emergency Medicine